=== PATIENT | male | born 1965 | race Caucasian/White ===

== ENCOUNTER 2016-09-17 11:34 | Emergency (ER) | payer BC ==
[2016-09-17] MEDS ORDERED: NO MEDICATIONS (11:47)
[2016-09-17 12:13] LABS: URINE SOURCE CLEAN CATCH
[2016-09-17 12:16] LABS: URINE APPEARANCE CLEAR; URINE BLOOD NEG (NEG); URINE COLOR YELLOW; URINE GLUCOSE NEG (NORM); URINE KETONE 1+ (NEG); URINE LEUKOCYTE ESTERASE NEG (NEG); URINE NITRATE NEG (NEG); URINE PH 5.5 (5-8); URINE SPECIFIC GRAVITY 1.025 (1.003-1.035)
[2016-09-17 12:18] LABS: MICRO INDICATED? NO; URINE BILIRUBIN NEG (NEG); URINE PROTEIN NEG (NEG)
== END 2016-09-17 12:48 | disposition home or self-care (01) ==
LOC: SED 11:34
PROVIDERS: Physician Assistant
DX: E86.0 Dehydration (principal); R30.0 Dysuria; F17.200 Nicotine dependence, unspecified, uncomplicated; Z98.890 Other specified postprocedural states
CPT/HCPCS: 81003; 99283